=== PATIENT | female | born 2000 | race Caucasian/White ===

== ENCOUNTER 2018-08-14 23:33 | Emergency (ER) | payer OTHER, BC ==
[2018-08-15] MEDS: IBUPROFEN 200 MG TAB PO (01:34)
== END 2018-08-15 02:14 | disposition home or self-care (01) ==
LOC: FTE 23:33
DX: M94.0 Chondrocostal junction syndrome [Tietze] (principal)
CPT/HCPCS: 71046; 93005; 99284-25